=== PATIENT | male | born 1995 | race Caucasian/White ===

== ENCOUNTER 2019-12-23 20:57 | Emergency (ER) | payer MEDICAID ==
[~2019-12-23] VITALS: Ht 182.9 cm; Wt 93.2 kg
[2019-12-23 21:02] VITALS: BP 132/81
--- NOTE | 2019-12-23 21:58 | NUR ---
DENIES ANY STD/SDI SYMPTOMS.
[2019-12-23] MEDS ORDERED: CefTRIAXone 250MG IM Kit w/LIDOcaine IM ONE (22:30)
== END 2019-12-23 22:55 | disposition home or self-care (01) ==
LOC: ER 20:58
DX: A64 Unspecified sexually transmitted disease (principal); A54.9 Gonococcal infection, unspecified
CPT/HCPCS: 96372; 99283; J0696

== ENCOUNTER 2020-04-13 16:42 | Emergency (ER) | payer MEDICAID ==
[~2020-04-13] VITALS: Ht 182.9 cm; Wt 93.6 kg
[2020-04-13 16:59] VITALS: BP 130/73
[2020-04-13] MEDS ORDERED: metroNIDAZOLE 500mg tablet PO ONE (18:15)
[2020-04-13] MEDS ORDERED: CefTRIAXone 250MG IM Kit w/LIDOcaine IM ONE (18:15)
[2020-04-13] MEDS ORDERED: azithromycin 250mg tablet PO ONE (18:15)
[2020-04-13 18:42] LABS: CLARITY,URINE CLEAR (Clear); COLOR,URINE YELLOW (Yellow); GLUCOSE, URINE NEGATIVE (Neg); KETONES,URINE NEGATIVE (Neg); LEUKOCYTE ESTERASE ,URINE NEGATIVE (Neg); NITRITES, URINE NEGATIVE (Neg); OCCULT BLOOD,URINE NEGATIVE (Neg); PH,URINE 6.5 (4.8-8.0); PROTEIN,URINE NEGATIVE (Neg)
[2020-04-13 18:47] LABS: UA COLLECTION TYPE CLN CATCH MIDSTREAM
== END 2020-04-13 18:38 | disposition home or self-care (01) ==
LOC: ER 16:43
DX: R36.9 Urethral discharge, unspecified (principal); Z11.3 Encounter for screening for infections with a predominantly sexual mode of transmission
CPT/HCPCS: 81003; 96372; 99283; J0696; J3490

== ENCOUNTER 2024-02-08 11:34 | Emergency (ER) | payer BC, MEDICAID ==
[~2024-02-08] VITALS: Ht 185.4 cm; Wt 95.5 kg
[~2024-02-08 11:34] MED LIST: GUAI400T92 PO
[2024-02-08] MEDS ORDERED: TERB250T89 PO (14:44)
[2024-02-08] MEDS ORDERED: DOXY150T8 PO (14:44)
[2024-02-08] MEDS: azithromycin 250mg tablet PO ONE (15:33)
[2024-02-08] MEDS: CefTRIAXone 1000mg IM Kit (w/lidocaine diluent) IM ONE (15:34)
[2024-02-08] MEDS: dexamethasone sod phosphate 10mg/ml inj IM STA (15:34)
[2024-02-08 16:16] VITALS: BP 121/92; PULSE 52; RESP 16; TEMP 98.1; O2SAT 98
== END 2024-02-08 16:18 | disposition home or self-care (01) ==
LOC: ER 11:34
DX: A64 Unspecified sexually transmitted disease (principal); B35.1 Tinea unguium; L40.9 Psoriasis, unspecified; Z79.899 Other long term (current) drug therapy
CPT/HCPCS: 96372; 99284; J0696; J1100